=== PATIENT | female | born 1980 | race Caucasian/White ===

== ENCOUNTER 2018-11-04 21:00 | Emergency (ER) | payer BC ==
--- OUTSIDE RECORDS SUMMARY | 2018-11-04 21:02 | XMS REPORT ---
:1980 [facility] Address [address] [place] [address] Dr. Mcleod [address] [place] [id number] Care Team Providers Name Role Phone Unavailable Unavailable Unavailable Problems This patient has no known problems. Allergies, Adverse Reactions, Alerts This patient has no known allergies or adverse reactions. Medications This patient has no known medications.
[2018-11-04] MEDS ORDERED: DIAZEPAM 5 MG TABLET ONE (21:38)
[2018-11-04] MEDS ORDERED: dexAMETHasone 10 MG/ML VIAL ONE (21:38)
[2018-11-04] MEDS ORDERED: HYDROCODONE/APAP 5/325 MG TAB ONE (22:36)
--- NOTE | 2018-11-04 22:41 | EDPHYS ---
Physician Documentation [facility] Name: Juana Zamora Age: 38 yrs Sex: Female : 1980 Arrival Date: 11/04/2018 Time: 21:04 Bed 15 Private MD: Carin Pedro K ED Physician Omari Lema HPI: 11/04 21:34 This 38 yrs old Female presents to ER via Ambulatory with complaints of pm1 Shoulder Pain, Neck Problem. 21:34 The patient or guardian complains of pain. Context: The problem was sustained at an pm1 unknown site, resulted from an unknown reason, The patient reports no decreased range of motion. The patient reports no obvious deformity. Onset: The symptoms/episode began/occurred 6 week(s) ago. Modifying factors: the symptoms are alleviated by initial prescription of Medrol dose pack and Skelaxin by PCP but it stopped working, The symptoms are aggravated by movement. Associated signs and symptoms: Pertinent negatives: abdominal pain, chest pain, diaphoresis, dyspnea, Numbness in left arm tingling. Severity of symptoms: in the emergency department the symptoms are unchanged. Treatment prior to arrival includes: no previous treatment. The patient has been recently seen by a physician: Dr. Mirza today and told that it was likely her neck. He referred to pain management. Patient presenting today with neck and left shoulder pain for the past 6 weeks. Saw her PCP and was started on steroids and muscle relaxants. Initially with some improvement but pain returned. Referred to Dr. Mirza and she saw him today. He referred her to pain management with the impression that the problem is in her neck. POKE IN: 21:09 LMP N/A - Hysterectomy ak1 Historical: - Allergies: 21:13 No Known Allergies; ak1 - Home Meds: 21:13 mydayis [Active]; Viibryd oral 30mg oral 1 tab once daily for Major Depressive Disorder ak1 [Active]; atenolol 50 mg Oral tab 1 tab once daily [Active]; - PMHx: 21:13 binge eating disorder; Depression; ak1 - PSHx: 21:13 ; Hysterectomy; ak1 - Immunization history:: Adult Immunizations unknown. - Social history:: Smoking status: Patient/guardian denies using tobacco. - Ebola Screening: : No symptoms or risks identified at this time. ROS: 21:34 Constitutional: Negative for fever, chills, and weight loss, Eyes: Negative for injury, pm1 pain, redness, and discharge, ENT: Negative for injury, pain, and discharge. 21:34 Cardiovascular: Negative for chest pain, palpitations, and edema, Respiratory: Negative for shortness of breath, cough, wheezing, and pleuritic chest pain, Abdomen/GI: Negative for abdominal pain, nausea, vomiting, diarrhea, and constipation. 21:34 : Negative for injury, bleeding, discharge, and swelling, MS/Extremity: Negative for injury and deformity, Skin: Negative for injury, rash, and discoloration, Neuro: Negative for headache, weakness, numbness, tingling, and seizure. 21:34 Neck: Positive for pain to the left side of her neck. 21:34 Back: Positive for of the left trapezius and left scapular area, pain. Exam: 21:34 Constitutional: This is a well developed, well nourished patient who is awake, alert, pm1 and in no acute distress. Head/Face: Normocephalic, atraumatic. 21:34 Chest/axilla: Normal chest wall appearance and motion. Nontender with no deformity. No lesions are appreciated. Cardiovascular: Regular rate and rhythm with a normal S1 and S2. No gallops, murmurs, or rubs. Normal PMI, no JVD. No pulse deficits. Respiratory: Lungs have equal breath sounds bilaterally, clear to auscultation and percussion. No rales, rhonchi or wheezes noted. No increased work of breathing, no retractions or nasal flaring. Abdomen/GI: Soft, non-tender, with normal bowel sounds. No distension or tympany. No guarding or rebound. No evidence of tenderness throughout. 21:34 Skin: Warm, dry with normal turgor. Normal color with no rashes, no lesions, and no evidence of cellulitis. MS/ Extremity: Pulses equal, no cyanosis. Neurovascular intact. Full, normal range of motion. 21:34 Neck: External neck: tenderness, that is mild, of the left trapezius, C-spine: appears grossly normal, vertebral tenderness, is not appreciated. 21:34 Back: normal spinal alignment noted, muscle spasm, is appreciated in the left trapezius and left scapular area. 21:34 Neuro: Orientation: is normal, Motor: is normal, moves all fours, Sensation: is normal, no obvious gross deficits. Vital Signs: 21:09 BP 110 / 52 RA; rr5 21:09 Pulse 84; Resp 18; Temp 97.6; Pulse Ox 97% on R/A; Weight 158.76 kg (R); Height 5 ft. 7 ak1 in. (170.18 cm) (R); Pain 8/10; 22:25 BP 110 / 56; Pulse 89; Resp 17; Pulse Ox 99% on R/A; Pain 8/10; rr5 22:58 BP 111 / 59; Pulse 75; Resp 16; Pulse Ox 99% ; rr5 21:09 Body Mass Index 54.82 (158.76 kg, 170.18 cm) ak1 MDM: 21:07 Patient medically screened. pm1 21:33 Data reviewed: vital signs. Data interpreted: Pulse oximetry: on room air is 97 %. pm1 Interpretation: normal. 22:38 Counseling: I had a detailed discussion with the patient and/or guardian regarding: the pm1 historical points, exam findings, and any diagnostic results supporting the discharge/admit diagnosis, the need for outpatient follow up, to return to the emergency department if symptoms worsen or persist or if there are any questions or concerns that arise at home. 22:38 ED course: Patient felt that narcotic more effective for pain than Valium, will pm1 discharge the patient home with Tylenol #3, steroids, and muscle relaxant and discussed follow up with neurosurgery or pain management for MRI and for further management of pain. Administered Medications: 21:23 Drug: Decadron - Dexamethasone 10 mg {Note: PO.} Route: IVP; Site: Other; rr5 22:25 Follow up: Response: No adverse reaction rr5 21:24 Drug: Valium 5 mg Route: PO; rr5 22:20 Follow up: Response: No adverse reaction rr5 22:25 Drug: [place] 5 mg-325 mg 1 tabs Route: PO; rr5 23:00 Follow up: Response: No adverse reaction rr5 Disposition: 11/05 07:07 Co-signature as Attending Physician, Omari Lema MD I agree with the assessment and sandra plan of care. Disposition: 11/04/18 22:40 Discharged to Home. Impression: Radiculopathy, cervical region, Muscle spasm of back. - Condition is Stable. - Discharge Instructions: Back Pain, Adult, Cervical Radiculopathy, Muscle Cramps and Spasms, Back Injury Prevention, [id number]. - Prescriptions for Tylenol- Codeine #3 300-30 mg Oral Tablet - take 2 tablets by ORAL route every 6 hours As needed; 20 tablet. Cyclobenzaprine 10 mg Oral Tablet - take 1 tablet by ORAL route every 8 hours As needed; 30 tablet. Prednisone 20 mg Oral Tablet - take 2 tablet by ORAL route once daily for 5 days; 10 tablet. - Medication Reconciliation Form, Thank You Letter, Antibiotic Education, Prescription Opioid Use form. - Follow up: Emergency Department; When: As needed; Reason: Worsening of condition. Follow up: Private Physician; When: 2 - 3 days; Reason: Recheck today's complaints, Continuance of care, Re-evaluation by your physician. - Problem is new. - Symptoms have improved. Signatures: Omari Lema MD MD cha Krenek, Amber RN RN ak1 Kd Purvis NP DIRECTOR ENERGY pm1 Yfn Garrett RN RN rr5 Corrections: (The following items were deleted from the chart) 11/04 23:01 22:40 11/04/2018 22:40 Discharged to Home. Impression: Radiculopathy, cervical region; rr5 Muscle spasm of back. Condition is Stable. Forms are Medication Reconciliation Form, Thank You Letter, Antibiotic Education, Prescription Opioid Use. Follow up: Emergency Department; When: As needed; Reason: Worsening of condition. Follow up: Private Physician; When: 2 - 3 days; Reason: Recheck today's complaints, Continuance of care, Re-evaluation by your physician. Problem is new. Symptoms have improved. pm1
--- NOTE | 2018-11-04 22:41 | ER ---
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 pt seen by Dr. Pike Thursday with no relief and referred to pain management who can not see pt for over a month. Transition of care: patient was not received from another setting of care. Onset of symptoms is unknown. Risk Assessment: Do you want to hurt yourself or someone else? Patient reports no desire to harm self or others. Initial Sepsis Screen: Does the patient meet any 2 criteria? No. Patient's initial sepsis screen is negative. Does the patient have a suspected source of infection? No. Patient's initial sepsis screen is negative. Care prior to arrival: None. 21:10 Method Of Arrival: Ambulatory ak1 21:10 Acuity: ANA 4 ak1 Triage Assessment: 21:13 General: Appears in no apparent distress. Behavior is calm, cooperative. 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 - Social history:: Smoking status: Patient/guardian denies using tobacco. - Ebola Screening: : No symptoms or risks identified at this time. Screenin:05 Abuse screen: Denies threats or abuse. Denies injuries from another. Nutritional rr5 screening: No deficits noted. Tuberculosis screening: No symptoms or risk factors identified. 21:45 Fall Risk None identified. Total Cody Fall Scale indicates No Risk (0-24 pts). rr5 Assessment: 21:45 General: Appears in no apparent distress. uncomfortable, Behavior is calm, cooperative, rr5 appropriate for age. Pain: Complains of pain in neck Pain radiates to left arm Pain currently is 8 out of 10 on a pain scale. Quality of pain is described as aching, Pain began gradually, Is intermittent. 21:45 Neuro: Level of Consciousness is awake, alert, obeys commands, Oriented to person, rr5 place, time, situation, Appropriate for age. Cardiovascular: Capillary refill < 3 seconds Patient's skin is warm and dry. Respiratory: Airway is patent Respiratory effort is even, unlabored, Respiratory pattern is regular, symmetrical. GI: No signs and/or symptoms were reported involving the gastrointestinal system. : No signs and/or symptoms were reported regarding the genitourinary system. EENT: No signs and/or symptoms were reported regarding the EENT system. Derm: Skin is intact, Skin temperature is warm. Musculoskeletal: Capillary refill < 3 seconds, Range of motion: intact in all extremities, Reports pain in neck and left arm Pain is 8 out of 10 on a pain scale. 22:27 Reassessment: Patient appears in no apparent distress at this time. Patient is alert, rr5 oriented x 3, equal unlabored respirations, skin warm/dry/pink. ED provider aware with order made and carried out. Patient states symptoms have not improved. 22:58 Reassessment: Patient appears in no apparent distress at this time. Patient is alert, rr5 oriented x 3, equal unlabored respirations, skin warm/dry/pink. discharge instruction given and explained without complaints made. Vital Signs: 21:09 BP 110 / 52 RA; rr5 21:09 Pulse 84; Resp 18; Temp 97.6; Pulse Ox 97% on R/A; Weight 158.76 kg (R); Height 5 ft. 7 ak1 in. (170.18 cm) (R); Pain 8/10; 22:25 BP 110 / 56; Pulse 89; Resp 17; Pulse Ox 99% on R/A; Pain 8/10; rr5 22:58 BP 111 / 59; Pulse 75; Resp 16; Pulse Ox 99% ; rr5 21:09 Body Mass Index 54.82 (158.76 kg, 170.18 cm) ak1 ED Course: 21:04 Patient arrived in ED. mr 21:04 Carin Pedro MD is Private Physician. mr 21:04 Yfn Garrett, GENARO is Primary Nurse. rr5 21:06 Kd Purvis NP is PHCP. pm1 21:06 Omari Lema MD is Attending Physician. pm1 21:11 Triage completed. ak1 21:13 Arm band placed on Patient placed in an exam room, Patient notified of wait time. ak1 21:45 Patient has correct armband on for positive identification. Bed in low position. Call rr5 light in reach. 22:59 No provider procedures requiring assistance completed. Patient did not have IV access rr5 during this emergency room visit. Administered Medications: 21:23 Drug: Decadron - Dexamethasone 10 mg {Note: PO.} Route: IVP; Site: Other; rr5 22:25 Follow up: Response: No adverse reaction rr5 21:24 Drug: Valium 5 mg Route: PO; rr5 22:20 Follow up: Response: No adverse reaction rr5 22:25 Drug: [place] 5 mg-325 mg 1 tabs Route: PO; rr5 23:00 Follow up: Response: No adverse reaction rr5 Outcome: 22:40 Discharge ordered by MD. pm1 22:59 Discharged to home ambulatory, with family. rr5 22:59 Condition: stable 22:59 Discharge instructions given to patient, Instructed on discharge instructions, follow up and referral plans. medication usage, Demonstrated understanding of instructions, follow-up care, medications, Prescriptions given X 3. 23:01 Patient left the ED. rr5 Signatures: So Barahona mr AbreuBeckie, RN RN ak1 Kd Purvis, KATELYN SOLID PROPELLANT PROCESSOR pm1 Yfn Garrett, GENARO RN rr5
== END 2018-11-04 23:01 | disposition home or self-care (01) ==
LOC: ER 21:00
DX: M54.12 Radiculopathy, cervical region (principal); M62.830 Muscle spasm of back; F32.9 Major depressive disorder, single episode, unspecified
CPT/HCPCS: 96374; 99283; J1100